=== PATIENT | male | born 1940 | race Caucasian/White ===

== ENCOUNTER 2016-09-01 08:03 | Observation (INO) | payer OTHER ==
[2016-08-17 11:34] VITALS: BMI 24.0
--- NOTE | 2016-08-17 11:56 | PAT Medication Instructions ---
Service Date Aug 17, 2016. Current Home Medication List Aspirin (Aspirin Ec), 81 MG PO QPM Cholecalciferol (Vitamin D3), 1 TAB PO QAM Glimepiride (Glimepiride), 1 TAB PO QAM Ibuprofen Tab (Advil), 200 MG PO PRN Metformin Hcl (Glucophage), 500 MG PO BID Ramipril (Altace), 5 MG PO QAM Simvastatin (Zocor), 5 MG PO QPM Tamsulosin HCl (Tamsulosin HCl), 0.4 MG PO BID Medication Instructions For Your Scheduled Surgery - Check with surgeon for instructions: Aspirin (Aspirin Ec), 81 MG PO QPM Ibuprofen Tab (Advil), 200 MG PO PRN - Hold the following medications 48 hours prior to surgery: Metformin Hcl (Glucophage), 500 MG PO BID - Hold the following medications the morning of surgery: Tamsulosin HCl (Tamsulosin HCl), 0.4 MG PO BID Glimepiride (Glimepiride), 1 TAB PO QAM Cholecalciferol (Vitamin D3), 1 TAB PO QAM Ramipril (Altace), 5 MG PO QAM - Take the following medications as scheduled the night before surgery: Tamsulosin HCl (Tamsulosin HCl), 0.4 MG PO BID Simvastatin (Zocor), 5 MG PO QPM If you have any questions please call us at [phone] (Maricel Hutchins PA-C) or [phone] or [phone]
[2016-08-17 12:43] LABS: BASO % 0.5 %; BASO ABS # 0.05 K/uL (0-0.2); COMPLETE YES; EOS % 1.6 %; IG% 0.2 %; LYMPH % 17.7 %; LYMPH ABS # 1.62 K/uL (1.2-3.4); MEAN CELL VOLUME 83.1 fL (80-100); MEAN CORPUSCULAR HEMOGLOBIN 27.1 pg (25-34); MEAN CORPUSCULAR HGB CONC 32.6 g/dl (32-36); MONO % 7.3 %; NEUT % 72.7 %; PLATELET COUNT 315 K/uL (130-400); RED BLOOD COUNT 4.21 M/uL (4.7-6.1); WHITE BLOOD COUNT 9.16 K/uL (4.8-10.8)
--- NOTE | 2016-08-17 12:53 | DIAGNOSTIC IMAGING REPORT ---
TWO VIEW CHEST CLINICAL HISTORY: Preoperative examination. FINDINGS: PA and lateral chest radiographs are obtained. No prior studies are available for comparison at the time of dictation. The cardiomediastinal silhouette is unremarkable. There is atherosclerotic calcification of the thoracic aorta. The lungs appear hyperinflated and hyperlucent with flattening of the diaphragm and increased retrosternal clear space. Nonspecific interstitial thickening is noted. No airspace consolidation or pleural effusion is seen. There is no pneumothorax. The skeletal structures are osteopenic. Generative change is noted throughout the thoracic spine. IMPRESSION: Findings suggest emphysema. There is no acute cardiopulmonary abnormality. Electronically signed by: Earl Wilson M.D. 08/17/2016 12:51 PM Dictated Date/Time: 08/17/2016 12:50 PM
[~2016-09-01] VITALS: Ht 177.8 cm; Wt 76.0 kg
[2016-09-01] VITALS (11 sets, daily range): BP systolic 137–188; BP diastolic 68–82; PULSE 56–81; TEMP 36.4–37.1; O2SAT 95–99; Ht 177.8 cm; Wt 76.0 kg
[~2016-09-01 08:03] MED LIST: ASPI81TA28 PO; CEFTRIAXONE SOD INJ 1 GM in DEXTROSE 5% ADD-VANTAGE 50ML 50 ML IV SCH; CHOL1000 PO; FLM4 PO; GLC/500 PO; GLIM4TAB2 PO; IBUP-103 PO; LACTATED RINGER'S 1000ML 1,000 ML IV SCH; RAMI5CAP32 PO; SIMV5TAB2 PO
[2016-09-01] MEDS ORDERED: LIDOCAINE HCL 2% 2 ML VIAL (20MG/ML) ONE (09:04)
[2016-09-01] MEDS ORDERED: ONDANSETRON INJ 2 MG/ML 2 ML VIAL ONE (09:04)
[2016-09-01] MEDS ORDERED: PROPOFOL IV EMULSION 10 MG/ML 20 ML VIAL IV ONE (09:04)
[2016-09-01] MEDS ORDERED: FENTANYL CITRATE INJ 50 MCG/1 ML 2 ML VIAL ONE ×2 (09:04→10:34)
--- NOTE | 2016-09-01 09:36 | History & Physical Bridge Note ---
H&P Re-Evaluation Bridge Note: I have examined the patient, reviewed the History & Physical and in the interval since the performance of the History & Physical I have noted the following changes of clinical significance: No changes noted
[2016-09-01] MEDS ORDERED: ATROPINE SULFATE 0.1 MG/ML 5ML SYR IV PRN (10:00)
[2016-09-01] MEDS ORDERED: LABETALOL HCL IV 5 MG/ML 20ML IV PRN (10:00)
[2016-09-01] MEDS ORDERED: FENTANYL CITRATE INJ 50 MCG/1 ML 2 ML VIAL IV PRN (10:00)
[2016-09-01] MEDS ORDERED: ONDANSETRON INJ 2 MG/ML 2 ML VIAL IV PRN (10:00)
[2016-09-01] MEDS ORDERED: MoRPHine SULFATE 2 MG/ML CARP ONE (10:16)
--- NOTE | 2016-09-01 10:49 | [facility] Post Operative Brief Note ---
Immediate Operative Summary Operative Date Sep 01, 2016. Pre-Operative Diagnosis Urinary Retention and Benign Prostatic Hyperplasia Post-Operative Diagnosis Urinary Retention and Benign Prostatic Hyperplasia Procedure(s) Performed Bipolar Transurethral Resection Prostate and cystoscopy Surgeon Dr. Connelly Event Designer Surgeon(s) none Estimated Blood Loss 10 ML Findings Very large bladder. Wide mouthed diverticulum. Very high bladder neck with bilobar hypertrophy. Specimens none Drains 22 de la rosa Anesthesia gen Complication(s) None Disposition Recovery Room / PACU (stable)
[2016-09-01] MEDS ORDERED: CIPR-255 PO (10:51)
[2016-09-01] MEDS ORDERED: PHEN-876 PO (10:51)
[2016-09-01] MEDS ORDERED: ACET-749 PO (10:51)
[2016-09-01] MEDS ORDERED: SODIUM CHLORIDE 0.9% 1000ML 1,000 ML IV SCH (10:53)
--- NOTE | 2016-09-01 10:53 | Discharge Instructions ---
Discharge Instructions Date of Service Sep 01, 2016. Admission Reason for Admission: Benign Prostatic Hypertrophy Discharge Discharge Diagnosis / Problem: BPH; urinary retention Discharge Goals Goal(s): Decrease discomfort, Improve function, Increase independence, Improve disease control, Prevent Disease Progression Activity Recommendations Activity Limitations: resume your previous activity Lifting Limitations: none, gradually increase as tolerated Exercise/Sports Limitations: gradually increase as tolerated May Resume Sexual Activity: when tolerated Shower/Bathe: no limitations Driving or Machine Use: no limitations (as long as you aren't on pain medications) . Instructions / Follow-Up Instructions / Follow-Up Please keep your previously scheduled follow up appointment for Wednesday to have your catheter removed. Discharge Diet Recommended Diet: Regular Diet Procedures Procedures Performed: Bipolar Transurethral Resection Prostate and cystoscopy Pending Studies Studies pending at discharge: no Medical Emergencies . Who to Call and When: Medical Emergencies: If at any time you feel your situation is an emergency, please call 911 immediately. . Non-Emergent Contact Non-Emergency issues call your: Urologist Call Non-Emergent contact if: you have a fever, temperature is above 101.5, your pain is not controlled, your pain is worsening . . "Provider Documentation" section prepared by Isaias Cota. VTE Core Measure Inpt VTE Proph given/why not?: Treatment not indicated [place] Drug Monitoring Program Search Results: patient reviewed within database, no issues identified
[2016-09-01] MEDS ORDERED: OXYCODONE/ACETAMINOPHEN 5-325 TAB PO PRN ×2 (11:00)
--- NOTE | 2016-09-01 11:45 | OPERATIVE REPORT ---
DATE OF OPERATION: 09/01/2016 PREOPERATIVE DIAGNOSIS: Benign prostatic hypertrophy and urinary retention. POSTOPERATIVE DIAGNOSIS: Benign prostatic hypertrophy, urinary retention. PROCEDURE PERFORMED: Cystoscopy, transurethral resection of prostate. ANESTHESIA: General. ESTIMATED BLOOD LOSS: 10 mL. URINE OUTPUT: Not recorded. SPECIMENS: None. DRAINS: 22 Kosovan Bales catheter. DESCRIPTION OF THE PROCEDURE: Karl Keating was identified in the preoperative holding area. Appropriate informed consents were reviewed and completed and the patient was transported to the operating suite. Upon arrival, he received appropriate preoperative antibiotics in the form of ciprofloxacin. Adequate general anesthesia was achieved and the patient was placed in dorsal lithotomy position where he was sterilely prepped and draped in standard fashion. I began the case by passing a 27 resectoscope with visual obturator and 30 degree lens. Inspection revealed bilateral lateral lobe hypertrophy and a very high bladder neck. Inspection of the bladder revealed a massively distended bladder. I drained the bladder at that time of approximately 1500 mL of clear urine released. There was no evidence of tumors or other abnormalities. Moderate trabeculations. He appeared to have a shallow wide mouth diverticulum on the posterior wall. I attempted to identify the ureteral orifices at that time and they were found to be in a relatively orthotopic position. Following full inspection, I exchanged the visual obturator for resecting element in the form of a button electrode. I performed bilateral incision of the bladder neck at 5 o'clock and 7 o'clock respectively. This opened the bladder neck and dropped it down sufficiently to allow better visualization of the full trigone. I was able to then resect the tissue between these 2 incisions, followed by the left lateral lobe and the right lateral lobe. I concluded my resection by resecting and vaporizing the apical tissue bilaterally. At the conclusion of the case, there was excellent hemostasis. Of note, after my complete resection as I observed this he had copious amounts of anterior tissue as well which was drooping down and I felt somewhat likely to obstruct his lumen. I elected to resect a portion of this anterior tissue to completely open the prostatic urethra. At the conclusion of this he appeared to be widely patent. A 22 Kosovan Bales catheter was inserted without difficulty and the case concluded. There were no complications. I attest to the content of the Intraoperative Record and any orders documented therein. Any exceptions are noted below. RONNIE
--- NOTE | 2016-09-01 12:01 | Anesthesiology Progress Note ---
Anesthesia Post Op Note Date & Time Sep 01, 2016 at 12:00 Vital Signs Pain Intensity: 0 Vital Signs Past 12 Hours Date Time Temp Pulse Resp B/P Pulse Ox O2 Delivery O2 Flow Rate FiO2 09/01/16 11:32 69 18 97 09/01/16 11:32 69 18 09/01/16 11:30 183/88 09/01/16 11:28 166/88 09/01/16 11:27 75 15 09/01/16 11:27 76 15 97 09/01/16 11:25 175/93 09/01/16 11:22 75 16 96 09/01/16 11:22 74 16 09/01/16 11:21 162/75 09/01/16 11:20 36.4 75 16 166/88 96 Nasal Cannula 09/01/16 11:17 75 8 96 09/01/16 11:17 76 8 09/01/16 11:15 166/89 09/01/16 11:12 77 9 09/01/16 11:12 77 9 96 09/01/16 11:11 78 12 96 09/01/16 11:11 78 12 09/01/16 11:10 163/83 09/01/16 11:06 81 17 98 09/01/16 11:06 82 17 09/01/16 11:05 163/89 09/01/16 11:01 83 16 09/01/16 11:01 82 16 100 09/01/16 11:00 146/88 09/01/16 10:57 155/88 09/01/16 10:56 88 8 100 09/01/16 10:56 88 8 09/01/16 10:51 36.4 95 14 149/89 100 Mask 10 09/01/16 10:51 36.4 14 155/88 100 Mask 10 09/01/16 08:34 36.5 65 18 185/78 98 Room Air Notes Mental Status: alert / awake / arousable, participated in evaluation Pt Amnestic to Procedure: Yes Nausea / Vomiting: adequately controlled Pain: adequately controlled Airway Patency, RR, SpO2: stable & adequate BP & HR: stable & adequate Hydration State: stable & adequate Anesthetic Complications: no major complications apparent
[2016-09-01] MEDS ORDERED: OXYCODONE/ACETAMINOPHEN 5-325 TAB ONE (12:19)
--- NOTE | 2016-09-01 13:19 | Progress Note ---
Progress Note Date of Service Sep 01, 2016. Progress Note Pt extremely nervous in the recovery room. Clinically relatively stable,but he greatly prefers to stay overnight.
[2016-09-01] MEDS ORDERED: ACETAMINOPHEN 325 MG TAB PO PRN (13:30)
[2016-09-01] MEDS ORDERED: ACETAMINOPHEN/CODEINE 300/30MG TAB PO PRN ×2 (13:30)
[2016-09-01] MEDS ORDERED: ONDANSETRON 4 MG TAB PO PRN (13:30)
[2016-09-01] MEDS ORDERED: IV FLUIDS COMPLETED PRN (14:15)
[2016-09-01] MEDS: LACTATED RINGER'S 1000ML 1,000 ML IV SCH ×2 (16:10→23:12)
[2016-09-01] MEDS: DOCUSATE SODIUM 100 MG CAP PO SCH (20:54)
[2016-09-01] MEDS: PHENAZOPYRIDINE HCL 200 MG TAB PO SCH (20:54)
[2016-09-01] MEDS ORDERED: SIMVASTATIN 5 MG TAB PO SCH (21:00)
[2016-09-02] VITALS: BP 132/73; PULSE 73; TEMP 37.1; O2SAT 95
[2016-09-02 03:15] VITALS: BP 120/58; PULSE 73; TEMP 36.9; O2SAT 95
[2016-09-02 06:49] VITALS: BP 127/68; PULSE 70; TEMP 36.6; O2SAT 95
--- NOTE | 2016-09-02 07:57 | Progress Note ---
Subjective Date of Service: Sep 02, 2016. Subjective Pt evaluation today including: conversation w/ patient, chart review, lab review Voiding: de la rosa catheter in place (patent, draining rosado colored urine with some clot) 76 yo male s/p TURP. De La Rosa draining rosado colored urine with small clot. Pt c/o some suprapubic and penile pain, but otherwise feels well. Denies n/v. Labs pending this AM. Review of Systems Constitutional: No chills, No fever Respiratory: No shortness of breath Cardiac: No chest pain Abdomen: No nausea, No pain, No vomiting Male : + hematuria Heme: No abnormal bleeding/bruising Objective Vital Signs Date Time Temp Pulse Resp B/P Pulse Ox O2 Delivery O2 Flow Rate FiO2 09/02/16 06:49 36.6 70 18 127/68 95 Room Air 09/02/16 03:15 36.9 73 19 120/58 95 Room Air 09/02/16 00:00 37.1 73 19 132/73 95 Room Air 09/01/16 23:10 Room Air 09/01/16 21:30 37.1 79 18 143/68 95 Room Air 09/01/16 18:08 37.0 81 16 137/70 95 Room Air 09/01/16 16:50 36.5 75 16 137/74 96 Room Air 09/01/16 16:25 Room Air 09/01/16 15:50 36.7 73 16 154/74 96 Room Air 09/01/16 15:20 36.8 66 18 167/70 97 Room Air 09/01/16 14:50 36.9 70 16 188/81 96 Room Air 09/01/16 14:50 96 Room Air 09/01/16 13:40 56 18 175/81 96 Room Air 09/01/16 13:19 188/89 09/01/16 12:40 36.4 58 18 181/80 99 Room Air 09/01/16 12:10 62 18 168/80 96 Room Air 09/01/16 11:40 36.4 77 18 148/82 99 Room Air 09/01/16 11:32 69 18 97 09/01/16 11:32 69 18 09/01/16 11:30 183/88 09/01/16 11:28 166/88 09/01/16 11:27 75 15 09/01/16 11:27 76 15 97 09/01/16 11:25 175/93 09/01/16 11:22 75 16 96 09/01/16 11:22 74 16 09/01/16 11:21 162/75 09/01/16 11:20 36.4 75 16 166/88 96 Nasal Cannula 09/01/16 11:17 75 8 96 09/01/16 11:17 76 8 09/01/16 11:15 166/89 09/01/16 11:12 77 9 09/01/16 11:12 77 9 96 09/01/16 11:11 78 12 96 09/01/16 11:11 78 12 09/01/16 11:10 163/83 09/01/16 11:06 81 17 98 09/01/16 11:06 82 17 09/01/16 11:05 163/89 09/01/16 11:01 83 16 09/01/16 11:01 82 16 100 09/01/16 11:00 146/88 09/01/16 10:57 155/88 09/01/16 10:56 88 8 100 09/01/16 10:56 88 8 09/01/16 10:51 36.4 95 14 149/89 100 Mask 10 09/01/16 10:51 36.4 14 155/88 100 Mask 10 09/01/16 08:34 36.5 65 18 185/78 98 Room Air Physical Exam General Appearance: no apparent distress Eyes: normal inspection ENT: hearing grossly normal Neck: no JVD Respiratory/Chest: no respiratory distress, no accessory muscle use Cardiovascular: no JVD Extremities: normal inspection Neurologic/Psychiatric: alert, normal mood/affect, oriented x 3 Skin: normal color Laboratory Results Last 24 Hours Test 09/01/16 08:35 09/01/16 10:56 09/01/16 17:22 09/01/16 21:03 Bedside Glucose 116 mg/dl 116 mg/dl 140 mg/dl 132 mg/dl Test 09/02/16 04:44 Assessment and Plan POD #1 s/p TURP. AFVSS. Pt doing well post-op. Possible d/c home after breakfast if tolerating PO, ambulating without difficulty, and labs stable. He will f/u with Dr. Connelly as planned. Discharge planning: home
[2016-09-02 08:28] LABS: BASO % 0.3 %; BASO ABS # 0.03 K/uL (0-0.2); COMPLETE YES; EOS % 0.7 %; HEMATOCRIT 35.8 % (42-52); IG% 0.2 %; LYMPH % 15.5 %; LYMPH ABS # 1.78 K/uL (1.2-3.4); MEAN CELL VOLUME 83.6 fL (80-100); MEAN CORPUSCULAR HEMOGLOBIN 27.6 pg (25-34); MEAN PLATELET VOLUME 11.3 fL (7.4-10.4); MONO % 13.7 %; NEUT % 69.6 %; PLATELET COUNT 199 K/uL (130-400); RED BLOOD COUNT 4.28 M/uL (4.7-6.1); WHITE BLOOD COUNT 11.48 K/uL (4.8-10.8)
[2016-09-02] MEDS ORDERED: METFORMIN HCL 500 MG TAB PO SCH (08:30)
[2016-09-02] MEDS: PHENAZOPYRIDINE HCL 200 MG TAB PO SCH (08:42)
[2016-09-02] MEDS: DOCUSATE SODIUM 100 MG CAP PO SCH (08:42)
[2016-09-02] MEDS: GLIMEPIRIDE 2 MG TAB PO SCH ×2 (08:47→08:51)
[2016-09-02] MEDS: ENALAPRIL MALEATE 10 MG TAB PO SCH ×2 (08:48→08:51)
[2016-09-02 08:52] LABS: BUN/CREATININE RATIO 11.2 (10-20); CALCIUM 8.2 mg/dl (8.5-10.1); CREATININE 1.1 mg/dl (0.60-1.40)
[2016-09-02] MEDS ORDERED: CIPROFLOXACIN 500 MG TAB PO SCH (09:00)
--- NOTE | 2016-09-02 09:02 | Anesthesiology Progress Note ---
Anesthesia Post Op Note Date & Time Sep 02, 2016 at 09:01 Vital Signs Pain Intensity: 3.0 Vital Signs Past 12 Hours Date Time Temp Pulse Resp B/P Pulse Ox O2 Delivery O2 Flow Rate FiO2 09/02/16 06:49 36.6 70 18 127/68 95 Room Air 09/02/16 03:15 36.9 73 19 120/58 95 Room Air 09/02/16 00:00 37.1 73 19 132/73 95 Room Air 09/01/16 23:10 Room Air 09/01/16 21:30 37.1 79 18 143/68 95 Room Air Notes Mental Status: alert / awake / arousable, participated in evaluation Pt Amnestic to Procedure: Yes Nausea / Vomiting: adequately controlled Pain: adequately controlled Airway Patency, RR, SpO2: stable & adequate BP & HR: stable & adequate Hydration State: stable & adequate Anesthetic Complications: no major complications apparent
[2016-09-02 09:43] VITALS: BP 127/68; PULSE 70; TEMP 36.6; O2SAT 95
--- NOTE | 2016-09-08 08:44 | Discharge Summary ---
Discharge Summary Date of Service Sep 08, 2016. Discharge Summary Admission Date: Sep 01, 2016 at 08:25 Discharge Date: Sep 01, 2016 Discharge Disposition: Home Principal Diagnosis: BPH; urinary retention Procedures: TURP Medication Reconciliation New Medications: Acetaminophen/Codeine (Tylenol W/Codeine #3) 300 Mg/30 Mg Tab 1 TAB PO Q6 PRN for Pain, #20 TAB Ciprofloxacin Hcl (Cipro) 500 Mg Tab 500 MG PO BID, #6 TAB Phenazopyridine HCl (Pyridium) 200 Mg Tab 200 MG PO BID, #20 TAB Continued Medications: Aspirin (Aspirin Ec) 81 Mg Tab 81 MG PO QPM Cholecalciferol (Vitamin D3) 1,000 Unit Tab 1 TAB PO QAM for 90 Days, #90 TAB 3 Refills Glimepiride (Glimepiride) 4 Mg Tab 1 TAB PO QAM for 90 Days, #90 TAB 3 Refills Ibuprofen Tab (Advil) 200 Mg Tab 200 MG PO PRN, TAB Metformin Hcl (Glucophage) 500 Mg Tab 500 MG PO BID, TAB Ramipril (Altace) 5 Mg Cap 5 MG PO QAM, CAP Simvastatin (Zocor) 5 Mg Tab 5 MG PO QPM, TAB Tamsulosin HCl (Tamsulosin HCl) 0.4 Mg Cap 0.4 MG PO BID Hospital Course Pt admitted for TURP secondary to extreme LUTS and urinary retention. Details of the procedure as dictated previously in the operative report, however, in summary, he tolerated the procedure very well. Post operatively, he did well. He kept his catheter overnight, and given his bladder capcacity (1500cc drained at the start of the procedure), he was discharged home with the catheter in place. Total time spent on discharge = This includes examination of the patient, discharge planning, medication reconciliation, and communication with other providers. Discharge Instructions PLease see previously written d/c instructions
== END 2016-09-02 10:25 | disposition home or self-care (01) ==
LOC: ENRESERVTM → ENRESERVDT → C.ACU 08:03 → C.MSW 08:25
PROVIDERS: ADMIT Urology; ATTEND Urology
DX: N40.1 Benign prostatic hyperplasia with lower urinary tract symptoms (principal); R33.9 Retention of urine, unspecified; E11.9 Type 2 diabetes mellitus without complications; E78.5 Hyperlipidemia, unspecified; I10 Essential (primary) hypertension; Z79.82 Long term (current) use of aspirin; Z80.42 Family history of malignant neoplasm of prostate

== ENCOUNTER → 2016-09-16 | Outpatient (CLI) | payer OTHER ==
[~2016-09-16] MED LIST changes: +ACET-749 PO; -CEFTRIAXONE SOD INJ 1 GM in DEXTROSE 5% ADD-VANTAGE 50ML 50 ML IV SCH; +CIPR-255 PO; -LACTATED RINGER'S 1000ML 1,000 ML IV SCH; +PHEN-876 PO
== END | disposition home or self-care (01) ==
LOC: C.LABSPEC 11:25
PROVIDERS: ATTEND Urology
DX: N40.1 Benign prostatic hyperplasia with lower urinary tract symptoms (principal); R33.9 Retention of urine, unspecified

== ENCOUNTER → 2016-11-04 | Outpatient (CLI) | payer OTHER | END | disposition home or self-care (01) | LOC: C.LABSPEC 11:23 | PROVIDERS: ATTEND Urology | DX: R33.9 Retention of urine, unspecified (principal); N39.0 Urinary tract infection, site not specified; N52.9 Male erectile dysfunction, unspecified ==

== ENCOUNTER → 2017-09-06 | Outpatient (CLI) | payer OTHER ==
[~2017-09-06] MED LIST changes: -ACET-749 PO; -PHEN-876 PO
== END | disposition home or self-care (01) ==
LOC: C.LABSPEC 16:50
PROVIDERS: ATTEND Urology
DX: R33.9 Retention of urine, unspecified (principal); N39.0 Urinary tract infection, site not specified